=== PATIENT | female | born 1980 | race Caucasian/White ===

== ENCOUNTER 2025-05-15 13:00 | Outpatient (CLI) | payer MEDICAID, SELFPAY ==
--- NOTE | 2025-05-15 | DI.US_ITS ---
Exam(s) US OB 1ST TRIMESTER EXAM: US OB 1ST TRIMESTER CLINICAL HISTORY: Confirmation of dating of , Z34.80; -0-0-1. COMPARISON: US OB US 1ST TRIMESTER TRANSABD*P from 12/23/2017 TECHNIQUE: Transabdominal Transvaginal first trimester obstetrical ultrasound performed. FINDINGS: Sonographic images demonstrate a single intrauterine gestation. A yolk sac and pole are seen. The yolk sac measures 0.8 cm. Sonographically assessed gestational age based upon crown-rump length of 0.6 cm is: 6 weeks 2 days Estimated date of delivery based upon LMP: 12/19/2025 with an estimated gestational age based on LMP of 8 weeks 6 days. heart rate motion is Dopplered at: No heart rate was detected on this examination today. No free fluid identified. Both ovaries appear sonographically normal. Pelvic Measurments Uterus: 10 cm long by 6.7 cm AP x 7.6 cm transverse Rt Ovary: 3.8 x 1.8 x 3.7 cm IMPRESSION: 1. There is a single intrauterine gestation with an estimated sonographic age of 6 weeks 2 days based on crown-rump length. 2. No heart rate was detected on this examination. 3. The yolk sac measures 0.8 cm. 4. The findings are suspicious for nonviable . Follow-up as clinically appropriate. 5. The findings were discussed with Shell Madrid, nurse residential appraiser at 2 p.m. on 05/15/2025. DATA REPOSITORY:
== END 2025-05-15 13:20 ==
LOC: DI 05-30 13:00
PROVIDERS: PCP Nurse Practitioner Adult Health; Visit Provider Midwife
DX: Z34.81 Encounter for supervision of other normal pregnancy, first trimester (principal); Z3A.01 Less than 8 weeks gestation of pregnancy
CPT/HCPCS: 76801